=== PATIENT | female | born 1960 | race Caucasian/White ===

== ENCOUNTER 2024-05-22 07:41 | Day surgery (SDC) | payer MEDICARE ==
[2024-05-22] MEDS ORDERED: Lidocaine 2% 100 MG/5 ML Syringe IVPUSH ONE (07:42)
[2024-05-22] MEDS ORDERED: Lidocaine 2% Viscous Solution 15 ML UD PO ONE (07:42)
[2024-05-22] MEDS ORDERED: Propofol 200 MG/20 ML SDV IV ONE (07:42)
[2024-05-22] MEDS ORDERED: Midazolam 1 MG/ML 2 ML SDV IV ONE (07:42)
[2024-05-22] MEDS ORDERED: Sodium Chloride 0.9% 10 ML Syringe FLUSH PRN (07:45)
[2024-05-22] MEDS: Lactated Ringers 1,000 ML IV SCH (08:55)
[2024-05-22] MEDS: Simethicone Drops 40 MG/0.6 ML 30 ML Bottle ONE (09:22)
[2024-05-22 11:19] VITALS: BP 122/87; PULSE 81
== END 2024-05-22 11:00 | disposition home or self-care (01) ==
LOC: FB.SDS 07:41
PROVIDERS: ATTEND Surgery
DX: K29.50 Unspecified chronic gastritis without bleeding (principal); B96.81 Helicobacter pylori [H. pylori] as the cause of diseases classified elsewhere; K22.89 Other specified disease of esophagus; K20.90 Esophagitis, unspecified without bleeding; K25.9 Gastric ulcer, unspecified as acute or chronic, without hemorrhage or perforation; E11.9 Type 2 diabetes mellitus without complications; I10 Essential (primary) hypertension; E66.01 Morbid (severe) obesity due to excess calories; Z79.899 Other long term (current) drug therapy; Z68.42 Body mass index [BMI] 45.0-49.9, adult
CPT/HCPCS: 00731; 82947; 88305; 88342; A9270-GY; J2250; J2704; J7120